=== PATIENT | female | born 1985 | race Caucasian/White ===

== ENCOUNTER 2019-12-25 15:04 | Emergency (ER) | payer MEDICARE, OTHER ==
[~2019-12-25] VITALS: Ht 157.5 cm; Wt 59.0 kg
[~2019-12-25 15:04] MED LIST: LEVO75TA PO
--- NOTE | 2019-12-25 15:25 | NUR ---
Dr Hollingsworth at the bedside for MSE.
--- NOTE | 2019-12-25 15:40 | NUR ---
Per pt and Dr Hollingsworth request info provided for [facility].
[2019-12-25 15:48] VITALS: BP 132/76
--- NOTE | 2019-12-25 15:48 | NUR ---
Patient discharged to home in stable condition. Written and verbal after care instructions given. Patient verbalizes understanding of instructions. Stressed follow up or return to ER for worsening s/s. pt walked out of ER w/ steady gait.
== END 2019-12-25 15:49 | disposition home or self-care (01) ==
LOC: ER 15:04
DX: F11.23 Opioid dependence with withdrawal (principal)
CPT/HCPCS: A4663